=== PATIENT | female | born 1960 | race Asian ===

== ENCOUNTER 2019-09-17 12:10 | Emergency (ER) | payer OTHER ==
[~2019-09-17] VITALS: Ht 160 cm; Wt 72.1 kg
[2019-09-17 12:19] VITALS: BP 138/77; Ht 160 cm; Wt 72.1 kg
== END 2019-09-17 15:08 | disposition home or self-care (01) ==
LOC: ED 12:10
DX: F07.81 Postconcussional syndrome (principal); W22.8XXA Striking against or struck by other objects, initial encounter; Y93.89 Activity, other specified; Y92.89 Other specified places as the place of occurrence of the external cause; Y99.8 Other external cause status